=== PATIENT | female | born 2000 | race Caucasian/White ===

== ENCOUNTER 2019-01-09 13:53 | Emergency (ER) | payer BC, OTHER ==
[2019-01-09 13:59] VITALS: BP 116/77; PULSE 93; RESP 18; TEMP 98.7
[2019-01-09] MEDS ORDERED: PROPARACAINE 0.5% OPHTH DROPS 15 ML BTL RIGHT EYE STA (14:01)
--- NOTE | 2019-01-09 14:12 | ED ---
Eye Problem HPI - General Chief complaint: Eye Problems Stated complaint: [facility]-Metal in eye Time Seen by Provider: 01/09/19 13:59 Source: patient Mode of arrival: ambulatory Limitations: no limitations - History of Present Illness Initial comments: Patient is a 18-year-old female presenting to emergency Department with a chief complaint of a metal dye. Patient reports she was at work, grinding a piece of metal when a small piece of shrapnel went under her glasses and lodge into her right eye. Patient reports she attempted to wash removal. However she had difficult time. Patient reports mild to moderate discomfort but not so much pain. Patient reports no eye drainage, blurry vision, headaches, nausea vomiting. Patient reports her tetanus status is up-to-date. Patient does not wear contacts. Patient denies pain with extraocular movements. - Related Data Home Medications Medication Instructions Recorded Confirmed Doterra Digestzen 2 - 3 cap PO PC-TID PRN 02/21/15 02/21/15 Norgestimate-Ethinyl Estradiol 1 tab PO HS 02/21/15 02/21/15 [Sprintec 28 Day Tablet] Previous Rx's Medication Instructions Recorded Famotidine [Pepcid] 20 mg PO BID #20 tablet 02/21/15 Ondansetron Odt [Zofran ODT] 4 mg PO Q8HR PRN #15 tab 02/21/15 Polymyxin B-Trimeth Sulf Ophth 1 drops RIGHT EYE Q4H #1 bottle 01/09/19 [Polytrim Opthalmic] Allergies Allergy/AdvReac Type Severity Reaction Status Date / Time No Known Allergies Allergy Verified 01/09/19 13:56 Review of Systems ROS Statement: Those systems with pertinent positive or pertinent negative responses have been documented in the HPI. ROS Other: All systems not noted in ROS Statement are negative. Past Medical History Additional Past Medical History / Comment(s): bacterial meningitis as a History of Any Multi-Drug Resistant Organisms: None Reported Additional Past Surgical History / Comment(s): umbilical surgery Past Psychological History: No Psychological Hx Reported Smoking Status: Never smoker Past Alcohol Use History: None Reported Past Drug Use History: None Reported General Exam Limitations: no limitations General appearance: alert, in no apparent distress Head exam: Present: atraumatic, normocephalic, normal inspection Eye exam: Present: normal appearance, PERRL, EOMI, other (1 mm foreign body at 4:00. 4 mm away from visual field.). Absent: scleral icterus, conjunctival injection, nystagmus, periorbital swelling, periorbital tenderness Pupils: Present: normal accommodation, other (No rust ring, negative [place] sign.) ENT exam: Present: normal exam, mucous membranes moist, normal external ear exam Neck exam: Present: normal inspection, full ROM Respiratory exam: Present: normal lung sounds bilaterally Cardiovascular Exam: Present: regular rate, normal rhythm, normal heart sounds Extremities exam: Present: normal inspection, full ROM Back exam: Present: normal inspection, full ROM Neurological exam: Present: alert, oriented X3 Psychiatric exam: Present: normal affect, normal mood Skin exam: Present: warm, intact, normal color Course Vital Signs 01/09/19 13:56 Temperature 98.7 F Pulse Rate 93 Respiratory 18 Rate Blood Pressure 116/77 O2 Sat by Pulse 97 Oximetry Procedures - Procedures Initial comment: Foreign body removal from the eye: Right eye, proparacaine drops for anesthesia, Q-tip for removal, patient tolerated procedure well. Medical Decision Making - Medical Decision Making Patient is a 18-year-old female presenting to the emergency department with a chief complaint of metal in eye. Patient appeared only to have a small metal foreign body in the right eye at 4:00. No rust ring noted. Foreign body was removed and patient tolerated the procedure well. Patient will be discharged with antibiotic of ophthalmic drops. Patient advised to follow-up with ENT if symptoms not improved. Strict return parameters were thoroughly discussed with patient is understanding and agreeable. Case discussed with physician. Disposition Clinical Impression: Foreign body of right eye Disposition: HOME SELF-CARE Condition: Stable Instructions (If sedation given, give patient instructions): Eye Foreign Body (ED) Additional Instructions: Please take prescribed medication as directed. Please follow up with ENT symptoms not improved. Please return to emergency department is symptoms worsen. Prescriptions: Polymyxin B-Trimeth Sulf Ophth [Polytrim Opthalmic] 1 drops RIGHT EYE Q4H #1 bottle Is patient prescribed a controlled substance at d/c from ED?: No Referrals: Mary Link MD [Primary Care Provider] - 1-2 days Elaine De León MD [STAFF PHYSICIAN] - 1-2 days Time of Disposition: 14:11
--- NOTE | 2019-01-10 07:44 | CDI ---
Dear Krishan Mena DO: Please do addendum the site (conjunctiva/cornea) of the eye foreign body removal. Thank you, Percy Merlos, Residency Program Coordinator. If you have any questions, please contact Conduit Installer at [phone]. these should be sent to the PA. Please look at the chart to see when the PAs see these patients. Only they can answer your questions. MTDD
--- NOTE | 2019-01-12 08:11 | CDI ---
Dear Reinier Hardy PA-C: Please do addendum the site of the eye (conjunctiva/cornea) foreign body removed. Thank you, Percy Merlos, Snack Bar Cashier. If you have any questions, please contact Campus Receptionist at [phone]. VANCED
== END 2019-01-09 14:30 | disposition home or self-care (01) ==
LOC: EC 13:53
DX: T15.91XA Foreign body on external eye, part unspecified, right eye, initial encounter (principal); Z79.3 Long term (current) use of hormonal contraceptives; Y93.89 Activity, other specified; Y92.69 Other specified industrial and construction area as the place of occurrence of the external cause; Y99.0 Civilian activity done for income or pay
CPT/HCPCS: 65205; 99283